=== PATIENT | female | born 1955 | race Hispanic/Latino ===

== ENCOUNTER 2023-06-15 05:41 | Day surgery (SDC) | payer MEDICARE ==
[2023-06-14 13:55] VITALS: BMI 33.5
[2023-06-15] MEDS ORDERED: Protamine Sulfate 50 MG/5 ML VIAL ONE (06:31)
[2023-06-15] MEDS ORDERED: Heparin 10,000 UNITS/ 10 ML VIAL ONE (06:31)
[2023-06-15 06:45] LABS: #Basophils 0.04 10x3/uL (0.0-0.2); %Basophils 0.7 % (0.0-1.0); %Eosinophils 3.4 % (0.0-10.0); %Lymphocytes 29.5 % (21.0-51.0); %Monocytes 11.4 % (0.0-10.0); %Neutrophils 54.7 % (42.0-75.0); Hematocrit 37.6 % (36.0-47.0); Hemoglobin 12.4 g/dL (12.0-16.0); Mean Corpuscular Hemoglobin 29.2 pg (27.0-31.0); Mean Corpuscular Volume 88.5 fL (78.0-98.0); Mean Platelet Volume 9.1 fL (7.4-10.4); Platelet Count 322 10x3/uL (130-400); RBC Distribution Width 13.2 % (11.5-14.5); Red Blood Cell (RBC) Count 4.25 mill/uL (4.20-5.40)
[2023-06-15 07:03] LABS: Anion Gap 14 mmol/L (10-20); BUN (Urea Nitrogen) 15 mg/dL (9.8-20.1); Calc. Creatinine Clearance 60 mL/min (70-130); Calcium 10.1 mg/dL (7.8-10.44); Carbon Dioxide 25 mmol/L (23-31); Chloride 101 mmol/L (98-107); Estimated GFR 50; Glucose 98 mg/dL (80-115); Potassium 4.5 mmol/L (3.5-5.1); Sodium 135 mmol/L (136-145)
[2023-06-15] MEDS ORDERED: fentaNYL 50 mcg/mL 1 mL Vial ONE (07:39)
[2023-06-15] MEDS ORDERED: Midazolam HCl 2 mg/2 ml Vial ONE (07:39)
[2023-06-15] MEDS ORDERED: Iopamidol 370 76% 100 ML VIAL ONE (10:36)
== END 2023-06-15 15:00 | disposition home or self-care (01) ==
LOC: SDC 05:41
PROVIDERS: ATTEND Internal Medicine Cardiovascular Disease
PROC: 4A023N8 Measurement of Cardiac Sampling and Pressure, Bilateral, Percutaneous Approach (ICD-10-PCS; principal; 2023-06-15)
DX: R94.39 Abnormal result of other cardiovascular function study (principal); R07.9 Chest pain, unspecified; E78.00 Pure hypercholesterolemia, unspecified; I10 Essential (primary) hypertension; N17.9 Acute kidney failure, unspecified; K21.9 Gastro-esophageal reflux disease without esophagitis; Z79.899 Other long term (current) drug therapy
CPT/HCPCS: 80048; 85025; 85347 ×2; 93458; C1769 ×2; J3010; 36415; 99152; J1644; J2250; J2720

== ENCOUNTER 2025-02-10 10:17 | Outpatient (CLI) | payer OTHER | END 2025-02-10 10:18 | disposition home or self-care (01) | LOC: ULT 10:17 | PROVIDERS: ATTEND Family Medicine | DX: R74.8 Abnormal levels of other serum enzymes (principal) | CPT/HCPCS: 76700 ==